=== PATIENT | female | born 1990 | race Caucasian/White ===

== ENCOUNTER 2020-01-01 17:45 | Emergency (ER) | payer BC ==
[~2020-01-01] VITALS: Ht 162.6 cm; Wt 79.4 kg
[2020-01-01] MEDS ORDERED: TYLENOL WITH CO1 TA1 PO (17:58)
[2020-01-01] MEDS ORDERED: ZOLOFT50 M1 PO (17:58)
[2020-01-01 18:38] LABS: ABSOLUTE BASOPHILS 0.1 thou/uL (0.0-0.2); ABSOLUTE EOSINOPHILS 0.3 thou/uL (0.0-0.7); ABSOLUTE MONOCYTES 1.1 thou/uL (0.0-1.2); ABSOLUTE NEUTROPHILS 11.5 thou/uL (1.6-8.1); BASOPHILS 0.6 %; EOSINOPHILS 2.2 %; HEMATOCRIT 36.9 % (37.0-47.0); HEMOGLOBIN 12.2 gm/dL (12.0-15.0); LYMPHOCYTES 13.1 %; MCH 27.7 pg (26.0-34.0); MCHC 33.1 g/dL (28.0-37.0); MCV 83.7 fL (80.0-100.0); MONOCYTES 7.2 %; MPV 7.6 fl. (7.2-11.1); NUCLEATED RBCS 0 /100WBC; PLATELET COUNT* 456 thou/uL (150-400); POLYS 76.9 %; RBC 4.41 mil/uL (4.20-5.00); RDW-CV 13.4 % (10.5-14.5)
[2020-01-01 18:44] LABS: CALCIUM 8.6 mg/dL (8.5-10.1); CREATININE 0.9 mg/dL (0.6-1.3); POTASSIUM 3.5 mmol/L (3.5-5.1)
[2020-01-01 18:54] LABS: ALBUMIN 3.1 g/dL (3.4-5.0); TOTAL BILIRUBIN 0.4 mg/dL (<0.1-1.0); TOTAL PROTEIN 7.6 g/dL (6.4-8.2)
[2020-01-01] MEDS ORDERED: KEFLEX500 M1 PO (20:11)
[2020-01-01] MEDS ORDERED: NORCO 5-325 TA1 EAC2 PO (20:11)
[2020-01-01] MEDS ORDERED: BACTRIM DS TAB1 EACH PO (20:11)
[2020-01-01 20:42] VITALS: BP 122/61
== END 2020-01-01 20:30 | disposition home or self-care (01) ==
LOC: M.ERS 17:45
PROVIDERS: Nurse Practitioner Family
DX: N61.1 Abscess of the breast and nipple (principal)